=== PATIENT | male | born 1980 ===

== ENCOUNTER 2021-09-27 15:16 | Emergency (ER) | payer SELFPAY ==
[~2021-09-27] VITALS: Ht 185.4 cm; Wt 77.1 kg
[2021-09-27 19:33] VITALS: BP 148/97
[2021-09-27] MEDS ORDERED: TETANUS-DIPTH-ACEL PERTUSSIS 0.5ML SYR Tdap IM ONE (19:45)
== END 2021-09-27 20:00 | disposition home or self-care (01) ==
LOC: ER 15:16
DX: S61.310A Laceration without foreign body of right index finger with damage to nail, initial encounter (principal); W22.8XXA Striking against or struck by other objects, initial encounter; Y93.89 Activity, other specified; Y92.89 Other specified places as the place of occurrence of the external cause; Y99.8 Other external cause status
CPT/HCPCS: 73140; 90471; 90715